=== PATIENT | female | born 1970 | race Caucasian/White ===

== ENCOUNTER 2017-06-13 23:43 | Emergency (ER) | payer OTHER ==
--- NOTE | 2017-06-14 01:53 | EDM.PDOC ---
ED HPI GENERAL MEDICAL PROBLEM - General Chief Complaint: Genitourinary Problem Stated Complaint: BLADDER INFECTION Time Seen by Provider: 06/13/17 23:57 Source of Information: Reports: Patient History Limitations: Reports: No Limitations - History of Present Illness INITIAL COMMENTS - FREE TEXT/NARRATIVE: bladder infection; this is a 46 year old female presents to ER for evaluation of bladder pain. She reports started to have symptoms today, came to ER because of increasing pain and frequency. denies any fever, chills, back pain, nausea or vomiting. Onset: Today Duration: Getting Worse Location: Reports: Pelvis Quality: Reports: Burning, Pressure Severity: Moderate Improves with: Reports: None Worsens with: Reports: None Associated Symptoms: Reports: No Other Symptoms ED ROS GENERAL - Review of Systems Review Of Systems: See Below Constitutional: Reports: No Symptoms HEENT: Reports: No Symptoms Respiratory: Reports: No Symptoms Cardiovascular: Reports: No Symptoms Endocrine: Reports: No Symptoms GI/Abdominal: Reports: Abdominal Pain (low abdomen) : Reports: Dysuria, Frequency, Pain, Urgency Musculoskeletal: Reports: No Symptoms Skin: Reports: No Symptoms Neurological: Reports: No Symptoms Psychiatric: Reports: No Symptoms Hematologic/Lymphatic: Reports: No Symptoms Immunologic: Reports: No Symptoms ED EXAM, GI/ABD - Physical Exam Exam: See Below Exam Limited By: No Limitations General Appearance: Alert, WD/WN, No Apparent Distress Eyes: Bilateral: Normal Appearance Respiratory/Chest: No Respiratory Distress, Lungs Clear, Normal Breath Sounds Cardiovascular: Normal Peripheral Pulses, Regular Rate, Rhythm, No Edema, No Gallop, No Murmur, No Rub GI/Abdominal: Normal Bowel Sounds, Soft, Non-Tender (no flank pain noted) Back Exam: Normal Inspection Neurological: Alert, Oriented, No Motor/Sensory Deficits Psychiatric: Normal Affect, Normal Mood Skin Exam: Warm, Dry, Intact, Normal Color, No Rash Lymphatic: No Adenopathy Course - Orders/Labs/Meds Orders: urine +leukocytes, +WBC, +RBC Labs: Laboratory Tests 06/14/17 Range/Units 01:21 Urine Color Other Urine Appearance Cloudy Urine pH 8.0 (4.5-8.0) Ur Specific [place] 1.005 L (1.008-1.030) Urine Protein Negative (NEGATIVE) mg/dL Urine Glucose (UA) Normal (NEGATIVE) mg/dL Urine Ketones Negative (NEGATIVE) mg/dL Urine Occult Blood Large (NEGATIVE) Urine Nitrite Negative (NEGATIVE) Urine Bilirubin Negative (NEGATIVE) Urine Urobilinogen Normal (NORMAL) mg/dL Ur Leukocyte Esterase Large (NEGATIVE) Urine RBC 5-10 H (0-5) Urine WBC Semi-packed H (0-5) Ur Epithelial Cells Few Amorphous Sediment Few Urine Bacteria Moderate Urine Mucus Few Departure - Departure Time of Disposition: 02:00 Disposition: Home, Self-Care 01 Condition: Good Clinical Impression: UTI, Urinary tract infectious disease - Discharge Information Instructions: Urinary Tract Infection, Adult, [id number] Referrals: PCP,None [Primary Care Provider] - Forms: ED Department Discharge Care Plan Goals: Urinary Tract Infection -start Macrobid 100mg take one in morning and evening til all gone -start Pyrdium 200mg take one three times a day for painful urinations x 3 days push fluids, water -urine culture pending return to clinic or ER if not improved or symptoms worsen contact Cell phone for any medication changes [phone] - Problem List & Annotations (1) UTI, Urinary tract infectious disease SNOMED Code(s): 33008858 Code(s): N39.0 - URINARY TRACT INFECTION, SITE NOT SPECIFIED Status: Acute Priority: High Current Visit: Yes - Problem List Review Problem List Initiated/Reviewed/Updated: Yes - Assessment/Plan Plan: Urinary Tract Infection -start Macrobid 100mg take one in morning and evening til all gone -start Pyrdium 200mg take one three times a day for painful urinations x 3 days push fluids, water -urine culture pending return to clinic or ER if not improved or symptoms worsen contact Cell phone for any medication changes [phone]
[2017-06-14 02:05] VITALS: BP 132/76
== END 2017-06-14 02:13 | disposition home or self-care (01) ==
LOC: JP.ED 23:43
DX: N39.0 Urinary tract infection, site not specified (principal)
CPT/HCPCS: 81001; 99284